=== PATIENT | female | born 1955 | race Caucasian/White ===

== ENCOUNTER 2021-06-03 12:58 | Emergency (ER) | payer MEDICARE, SELFPAY ==
[2021-06-03 13:10] VITALS: BP 144/83; PULSE 89; RESP 18; TEMP 36.9; O2SAT 100
--- NOTE | 2021-06-03 13:38 | ED.SKABFB ---
HPI - Skin/Abscess/Foreign Bdy General Chief complaint: Skin/Abscess/Foreign Body Stated complaint: rash on rt arm Source: patient and RN notes reviewed Limitations: no limitations History of Present Illness HPI narrative: The patient, present mostly healthy on minimal meds, presents with skin eruption. Patient states she has a shorter 2-day history of skin eruption on her left, inner elbow. Symptoms are mild, associated with definite pimples, and burning itch, unrelieved with OTC hydrocortisone. No fever, discharge, prodrome; she comments that she had shingles shot, it appears slightly linear like prior poison oak/contact dermatitis. She also mentions she is taking care of her brother who is doing very well after knee surgery, but had a small scab on his right lower hip. Discussed possible causes [infectious, allergic, environmental, etc.] and will treat broadly Related Data Home Medications Medication Instructions Recorded Confirmed calcium carbonate 500 mg calcium 500 mg PO DAILY 06/23/19 (1,250 mg) tablet multivitamin 1 cap PO DAILY 06/23/19 omeprazole 10 mg capsule,delayed 10 mg PO DAILY 06/23/19 release vitamin B12 0.5 mg-folic acid 1 mg 1 tablet PO DAILY 06/23/19 tablet Allergies Allergy/AdvReac Type Severity Reaction Status Date / Time Penicillins Allergy Unknown unkn Verified 06/07/20 10:23 Sulfa (Sulfonamide Allergy Unknown unkn Verified 06/07/20 10:23 Antibiotics) Review of Systems Review of Systems: General/Constitutional: No weight loss,fever Eyes: N0: Redness,discharge Ears/Nose/Throat: No: Epistaxis,ear discharge Respiratory: Denies: Hemoptysis Gastrointestinal: No Vomiting, Bleeding-rectal Skin: No Lumps, REPORTS eruption Neurologic: No Focal Weakness,Sz Hematologic: Denies: Petechiae/Purpura Psychiatric: No: Suicida ideationl All Other Systems: Reviewed and Negative [facility] Past Medical History Medical History (Updated 06/03/21 @ 16:56 by Saad Keating MD) Acid reflux BCC (basal cell carcinoma of skin) Nose History of fracture of right hip Status post closed fracture of right femur Surgical History Surgical History History of cataract extraction History of hand surgery Family History Family History Mother Patient's mother is in good health Sibling Patient's sister is in good health Patient's brother is in good health Family history of cardiovascular disease, Onset Age: 60 Father Family history of congestive heart failure Comments At time of signature, agree with nursing past medical, surgical, social and family history. There is no relevant family history pertinent to the presenting complaint Exam Narrative: General Appearance: Well nourished/overweight Head: Normocephalic, Conjunctiva clear Ear: External ear normal Nose: Normal nose, Nare clear Mouth/Throat: Normal appearing. Supple Respiratory: Airway patent, No respiratory distress Musculoskeletal: Moves all extremities, Non tender Skin: Warm, Dry , small, isolated papular-vesicular skin eruption of left elbow Neurological: A&O x3, Normal affect Course Vital Signs Vital signs: Vital Signs Temperature 98.5 F 06/03/21 13:10 Pulse Rate 89 06/03/21 13:10 Respiratory Rate 18 06/03/21 13:10 Blood Pressure 144/83 H 06/03/21 13:10 Pulse Oximetry 100 06/03/21 13:10 Temperature 98.5 F 06/03/21 13:10 Pulse Rate 89 06/03/21 13:10 Respiratory Rate 18 06/03/21 13:10 Blood Pressure 144/83 H 06/03/21 13:10 Pulse Oximetry 100 06/03/21 13:10 Discharge Plan Discharge Clinical Impression: Vesicular eruption, Pruritic condition Patient Disposition: Home, Self-Care Condition: Stable Instructions: Alena (ED) Additional Instructions: Continue photo log of area Prescriptions: New mupirocin 2 % oi
== END 2021-06-03 13:53 | disposition home or self-care (01) ==
PROVIDERS: Emergency Provider Emergency Medicine; PCP Physician Assistant
DX: R23.8 Other skin changes (principal); L29.9 Pruritus, unspecified; K21.9 Gastro-esophageal reflux disease without esophagitis; Z85.828 Personal history of other malignant neoplasm of skin; Z98.49 Cataract extraction status, unspecified eye
CPT/HCPCS: 99213; G0463

== ENCOUNTER 2021-07-11 00:37 | Day surgery (SDC) | payer MEDICARE, SELFPAY ==
[2021-06-19 14:28] VITALS: BMI 30.9
[2021-07-11 06:37] VITALS: BP 145/80; PULSE 77; RESP 18; TEMP 36.6; O2SAT 100
[2021-07-11] MEDS: LACTATED RINGERS 1,000 ML 150 ML IV CONT (06:48)
--- NOTE | 2021-07-11 07:00 | P.PNAN_ITS ---
Anes - Initial Pre Proc Eval Procedure: Operation Date: 07/11/21 07:30 Proposed Procedures p Screening Colonoscopy - Ang Liang MD Date/Time: 07/11/21 07:00 Surgeon: Ang Liang MD Pre Op Diagnosis: hx of colon polyps Patient Data Age: 65 Gender: F Height: 1.68 m Weight: 90.4 kg Last Vital Signs Temp 36.6 C 07/11/21 06:37 Pulse 77 07/11/21 06:37 Resp 18 07/11/21 06:37 BP 145/80 H 07/11/21 06:37 Pulse Ox 100 07/11/21 06:37 Allergies Allergy/AdvReac Type Severity Reaction Status Date / Time Penicillins Allergy Unknown unkn Verified 07/11/21 06:34 Sulfa (Sulfonamide Allergy Unknown unkn Verified 07/11/21 06:34 Antibiotics) Home Medications Medication Instructions Recorded Confirmed Type calcium carbonate 500 mg calcium 500 mg PO DAILY 06/23/19 06/19/21 History (1,250 mg) tablet multivitamin 1 cap PO DAILY 06/23/19 06/19/21 History omeprazole 10 mg capsule,delayed 10 mg PO DAILY PRN 06/23/19 06/19/21 History release vitamin B12 0.5 mg-folic acid 1 mg 1 tablet PO DAILY 06/23/19 06/19/21 History tablet ergocalciferol (vitamin D2) 1,250 mcg PO WEEKLY 06/19/21 06/19/21 History Patient hx anesthesia problems: none Family hx anesthesia problems: none Results Review: All pre-operative results and documents have been reviewed as part of the pre-operative evaluation. [facility] Past Medical History Medical History Acid reflux BCC (basal cell carcinoma of skin) Nose History of fracture of right hip Status post closed fracture of right femur Surgical History Surgical History History of cataract extraction History of hand surgery Family History Family History Mother Patient's mother is in good health Sibling Patient's sister is in good health Patient's brother is in good health Family history of cardiovascular disease, Onset Age: 60 Father Family history of congestive heart failure Social History Social History Smoking status: Never smoker Alcohol intake: current Drinks per week: 5 Living arrangements: with family Spiritual care concerns: No Anes - Eval Final PreProcedure Day of Procedure 07/11/21 07:00 Patient weight: obese Heart: regular rate and rhythm Lungs: clear to auscultation Airway: Mallampati scale class II Neurological: alert and oriented Last oral intake: >/= 8 hours ASA classification: II Emergent: no Anesthetic plan: proceed Anesthesia type and monitoring: general GIVS and standard monitoring Results Review: All pre-operative results and documents have been reviewed as part of the pre-operative evaluation. Informed Consent: The patient's anesthetic plan and its attendant risks and benefits were discussed with the patient/family/POA. Questions were solicited and answers provided to the satisfaction of the patient/family/POA.
--- NOTE | 2021-07-11 07:23 | WPDGICN ---
Assessment and Plan Assessment and plan (1) History of colon polyps: Code(s): Z86.010 - Personal history of colonic polyps Status: Acute Assessment and Plan: Patient has history of a colon polyp. Plan is for surveillance colonoscopy at this time. GI Consult Note Consult date/time: 07/11/21 07:23 HPI: Katelyn Verduzco is a 65 year old female Presents for screening colonoscopy. Patient has a history of colon polyp that was an adenoma removed in 2016. Patient reports that her current weight appetite bowel movements are normal. She denies abdominal pain. She has had no bleeding. Family history is noncontributory. Review of Systems Review of Systems: All systems reviewed & are unremarkable except as noted in HPI and below PMFSH Past Medical History Medical History (Updated 07/11/21 @ 07:25 by Ang Liang MD) Acid reflux BCC (basal cell carcinoma of skin) Nose History of fracture of right hip Status post closed fracture of right femur Surgical History Surgical History History of cataract extraction History of hand surgery Family History Family History Mother Patient's mother is in good health Sibling Patient's sister is in good health Patient's brother is in good health Family history of cardiovascular disease, Onset Age: 60 Father Family history of congestive heart failure Social History Social History Smoking status: Never smoker Alcohol intake: current Drinks per week: 5 Living arrangements: with family Spiritual care concerns: No Meds Home Medications and Allergies Home Medications Medication Instructions Recorded Confirmed Type calcium carbonate 500 mg calcium 500 mg PO DAILY 06/23/19 06/19/21 History (1,250 mg) tablet multivitamin 1 cap PO DAILY 06/23/19 06/19/21 History omeprazole 10 mg capsule,delayed 10 mg PO DAILY PRN 06/23/19 06/19/21 History release vitamin B12 0.5 mg-folic acid 1 mg 1 tablet PO DAILY 06/23/19 06/19/21 History tablet ergocalciferol (vitamin D2) 1,250 mcg PO WEEKLY 06/19/21 06/19/21 History Allergies Allergy/AdvReac Type Severity Reaction Status Date / Time Penicillins Allergy Unknown unkn Verified 07/11/21 06:34 Sulfa (Sulfonamide Allergy Unknown unkn Verified 07/11/21 06:34 Antibiotics) Vital Signs Vital Signs - 24 hr 07/11/21 06:37 Temperature 97.8 F Pulse Rate 77 Respiratory Rate 18 Blood Pressure 145/80 H Pulse Oximetry 100 Exam Narrative: Physical exam reveals patient to be alert. Vital signs stable. HEENT exam is unremarkable. Patient is anicteric. Lungs are clear to auscultation and percussion. Heart is without murmur or extra sounds. Abdominal exam bowel sounds are present soft nontender with no organomegaly. Digital external rectal exam is normal.
[2021-07-11] MEDS: SIMETHICONE ORAL SUSPENSION 20 MG/0.3 ML 30 ML BOTTLE 0.6 ML IRRIGATION (07:37)
[2021-07-11 07:44] VITALS: BP 124/69; PULSE 68; RESP 18; O2SAT 98
[2021-07-11 07:54] VITALS: BP 159/89; PULSE 67; RESP 22; O2SAT 100
[2021-07-11 08:04] VITALS: BP 123/81; PULSE 68; RESP 19; O2SAT 100
== END 2021-07-11 08:19 | disposition home or self-care (01) ==
PROVIDERS: PCP Physician Assistant; Visit Provider Internal Medicine Gastroenterology
PROC: 0DJD8ZZ Inspection of Lower Intestinal Tract, Via Natural or Artificial Opening Endoscopic (ICD-10-PCS; CPT 45378; principal; 2021-07-11 07:30)
DX: Z12.11 Encounter for screening for malignant neoplasm of colon (principal); K64.8 Other hemorrhoids; Z86.010 Personal history of colon polyps; K21.9 Gastro-esophageal reflux disease without esophagitis; E66.9 Obesity, unspecified; Z68.32 Body mass index [BMI] 32.0-32.9, adult
CPT/HCPCS: G0105; J2704; J7120

== ENCOUNTER 2023-06-27 14:23 | Outpatient (NON) | payer MEDICARE, SELFPAY | END 2023-06-27 14:24 | disposition home or self-care (01) | LOC: ANHLAB 14:25 | PROVIDERS: PCP Physician Assistant; Visit Provider Nurse Practitioner | DX: D48.5 Neoplasm of uncertain behavior of skin (principal) | CPT/HCPCS: 88305 ==

== ENCOUNTER 2023-07-11 17:24 | Outpatient (NON) | payer MEDICARE, SELFPAY | END 2023-07-11 17:25 | disposition home or self-care (01) | LOC: ANHLAB 17:25 | PROVIDERS: PCP Physician Assistant; Visit Provider Nurse Practitioner | DX: C44.622 Squamous cell carcinoma of skin of right upper limb, including shoulder (principal) | CPT/HCPCS: 88305 ==